=== PATIENT | male | born 1985 | race Caucasian/White ===

== ENCOUNTER 2018-08-26 02:14 | Emergency (ER) | payer MEDICAID ==
[~2018-08-26] VITALS: Ht 167.6 cm; Wt 63.0 kg
[~2018-08-26 02:14] MED LIST: HYDR-3980 PO; IBUP-1542 PO; PRED20TA PO; VALA10004 PO
[2018-08-26 02:18] VITALS: BP 133/63; PULSE 105; RESP 16; Ht 167.6 cm; Wt 63.0 kg
[2018-08-26] MEDS ORDERED: CEPH500C PO (05:19)
[2018-08-26] MEDS ORDERED: VALA500T4 PO (05:19)
[2018-08-26] MEDS ORDERED: IBUPROFEN 600 MG TAB PO ONE (05:30)
--- NOTE | 2018-08-26 05:35 | ERD ---
ER Documentation Chief Complaint Chief Complaint bilateral testicular pain/swelling x 4 days HPI 32-year-old male with a history of HIV on medications presenting with penile swelling and pain for the past 4 days. Although the chief complaint states that the patient has testicular pain, patient denies any testicular pain. He states that he has noticed some ulcers on his penis that initially started as vesicles with clear fluid that have now opened up. They are painful. Denies any discharge from the penis or any pain with urination. No fevers or chills. No other symptoms. Last sexual activity was about 1 month ago. He has had symptoms like this before and has been to another hospital 1 year ago and was diagnosed with HSV outbreak as well as balanitis. He was treated for both. ROS All systems reviewed and are negative except as per history of present illness. Medications Home Meds Active Scripts Cephalexin* (Cephalexin*) 500 Mg Capsule, 500 MG PO Q8, #21 CAP Prov:BECKY WARREN MD 08/26/18 valACYclovir Hcl* (Valtrex*) 500 Mg Tablet, 1000 MG PO BID for 7 Days, TAB Prov:BECKY WARREN MD 08/26/18 Ibuprofen* (Motrin*) 600 Mg Tab, 600 MG PO Q6, #30 TAB Prov:MACRINA QUIÑONES PA-C 01/01/16 Prednisone* (Prednisone*) 20 Mg Tab, 60 MG PO DAILY for 5 Days, TAB Prov:MACRINA QUIÑONES PA-C 01/01/16 valACYclovir HCl (Valtrex) 1,000 Mg Tablet, 1000 MG PO TID for 10 Days, TAB Prov:MACRINA QUIÑONES PA-C 01/01/16 Hydrocodone/Acetaminophen ([place] 10-325 Tablet) 1 Each Tablet, 1 TAB PO Q6H PRN for PAIN, #12 TAB Prov:MACRINA QUIÑONES PA-C 01/01/16 Allergies Allergies: Coded Allergies: No Known Allergy (Unverified , 08/26/18) PMhx/Soc Hx Miscellaneous Medical Probl: Yes (HIV, genital warts, genital HSV) Hx Alcohol Use: No Hx Substance Use: No Hx Tobacco Use: No FmHx Family History: No diabetes Physical Exam Vitals Vital Signs Date Temp Pulse Resp B/P (MAP) Pulse Ox O2 O2 Flow FiO2 Time Delivery Rate 08/26/18 97.3 105 16 133/63 99 02:18 (86) Physical Exam INITIAL VITAL SIGNS: Reviewed by me GENERAL: Well appearing, non toxic, speaking in full sentences. HEENT: Atraumatic, Moist mucous membranes. No intraoral lesions. Posterior oropharynx normal : Uncircumcised. Ulcerative lesion at the tip of the foreskin. There is also another ulcerative lesion near the base of the penis with surrounding erythema and swelling. No vesicles seen. Few genital warts noted. Scrotum and testicles normal to inspection and palpation. No foreskin swelling or erythema. No balanitis., Foreskin easily retractable. EXTREMITIES: No clubbing or cyanosis. No edema SKIN: Warm, dry. No other rashes noted NEUROLOGIC: Alert and awake Results 24 hrs Current Medications Medications Dose Sig/Ulises Start Time Status Last (Trade) Ordered Route PRN Stop Time Admin Dose Reason Admin Ibuprofen 600 mg ONCE ONCE 08/26/18 (Motrin) PO 05:30 08/26/18 05:31 Procedures/MDM Patient is presenting with painful genital ulcers, concerning for HSV outbreak. He also has surrounding cellulitis. He is afebrile and otherwise hemodynamically stable. Patient will be treated with valacyclovir and Keflex orally. I recommended outpatient clinic follow-up for STD testing including syphilis. Patient is agreeable with this plan. Return precautions discussed. Departure Diagnosis: Primary Impression: Male genital ulcer Additional Impressions: Penis, cellulitis Swelling of penis Condition: Stable Patient Instructions: Cellulitis, Herpes Genitalis, Hsv: Type Ii [facility] Usted se carbajal hecho un examen mdico de control que le indica que no est en wesley condicin que requiera tratamiento urgente en el Departamento de Emergencia. Un estudio ms profundo y el tratamiento de douglas condicin pueden esperar sin ningn riesgo hasta que usted sea atendida/o en el consultorio de douglas mdico o wesley clnica. Es responsabilidad suya arreglar wesley sheryl para el seguimiento del marvin. MANEJO DE CONDICIONES NO URGENTES EN EL FUTURO 1) Si usted tiene un mdico de atencin primaria: Usgerson debera llamar a douglas mdico de atencin primaria antes de venir al departamento de emergencia. Despus de las horas de consultorio, douglas doctor o douglas asociado/a est disponible por telfono. El mdico o enfermero de sadie en el servicio telefnico puede asesorarle por aziza medio para atender el problema, o marvin contrario se puede programar wesley sheryl. 2) Si usted no tiene un mdico de atencin primaria: Llame al mdico o clnica de referencia que aparece abajo yogesh las horas de consultorio para hacer wesley sheryl para que le vean. CLINICAS: [facility] [phone] [id number] [facility] [phone] [facility] [phone] [address] [facility]. [facility] [phone] [facility] [place] [phone] [facility]. [phone] [address] [facility]. [facility] () Graciela se carbajal hecho un examen mdico de control que le indica que no est en wesley condicin que requiera tratamiento urgente en el Departamento de Emergencia. Un estudio ms profundo y el tratamiento de douglas condicin pueden esperar sin ningn riesgo hasta que usted sea atendida/o en el consultorio de douglas mdico o wesley clnica. Es responsabilidad suya arreglar wesley sheryl para el seguimiento del marvin. MANEJO DE CONDICIONES NO URGENTES EN EL FUTURO 1) Si usted tiene un mdico de atencin primaria: Usted debera llamar a douglas mdico de atencin primaria antes de venir al departamento de emergencia. Despus de las horas de consultorio, douglas doctor o douglas asociado/a est disponible por telfono. El mdico o enfermero de sadie en el servicio telefnico puede asesorarle por aziza medio para atender el problema, o marvin contrario se puede programar wesley sheryl. 2) Si usted no tiene un mdico de atencin primaria: Llame al mdico o condado institucions de referencia que aparece abajo yogesh las horas de consultorio para hacer wesley sheryl para que le vean. SI USTED NO PUEDE PAGAR PARA JIMMIE UN MEDICO puede ir a: [facility] [id number] [place] [address] [facility] [address] [place], [place] [id number] [place] [address] [address] [place] [address] [address]A [facility] [address] [place] [address] Additional Instructions: You need to make an appointment in the clinic to get STD and syphilis testing done. BECKY WARREN MD August 26, 2018 05:34
== END 2018-08-26 06:36 | disposition home or self-care (01) ==
LOC: E/R 02:14
DX: N48.5 Ulcer of penis (principal); N48.22 Cellulitis of corpus cavernosum and penis; Z21 Asymptomatic human immunodeficiency virus [HIV] infection status
CPT/HCPCS: Z7502; Z7610; 99283